=== PATIENT | female | born 1980 | race Caucasian/White ===

== ENCOUNTER 2017-06-14 20:56 | Inpatient (IN) | payer OTHER ==
[2017-06-14 21:47] VITALS: BMI 33.3
[2017-06-14] MEDS ORDERED: Metoclopramide HCl 10 MG/2 ML VIAL IVP PRN (22:06)
[2017-06-14] MEDS ORDERED: diphenhydrAMINE 50 MG/ML VIAL IVP PRN (22:07)
[2017-06-14] MEDS ORDERED: Sodium Chloride 0.9% 10 ML ONE (22:07)
--- NOTE | 2017-06-14 22:12 | PDOC.LDHP ---
Labor and Delivery H&P Chief complaint: other (elevated BP, headache, epigastric pain) HPI: 37 y/o at 36w1d, patient of Dr. Mehta, presents with BURDICK, epigastric pain tonight with BP in 160s/90s at home. Has taken Tylenol with no improvement in BURDICK. Has induction scheduled for Tuesday. OB History Details: History of preeclampsia with 2nd 4 vaginal deliveries Current complications: gestational hypertension Past Medical History: Hx HTN, migraines, obesity, PCOS Current medications: pre- vitamins Previous surgical history: cholecystectomy, other (gastric sleeve ovarian cystectomy) Allergies/Adverse Reactions: Allergies Allergy/AdvReac Type Severity Reaction Status Date / Time meperidine Allergy Mild Verified 06/14/17 21:28 Social history: drug use (none current, recovering addict) - Physical Exam Abnormal vital signs: Elevated BPs General: NAD, resting Lungs: nonlabored breathing Abdomen: gravid Extremeties: no edema FHT: category 1 (130s, mod variability, + accels, no decels) [place] contractions every: occasional - OB Labs Additional Labs: Laboratory Results - last 24 hr 06/14/17 06/14/17 06/14/17 22:47 22:47 22:47 WBC RBC Hgb Hct MCV MCH MCHC RDW Plt Count MPV Neutrophils % Lymphocytes % Monocytes % Eosinophils % Basophils % Neutrophils # Lymphocytes # Monocytes # Eosinophils # Basophils # Sodium 138 Potassium 3.8 Chloride 105 Carbon Dioxide 24 Anion Gap 13 BUN 11 Creatinine 0.54 L Estimated GFR (MDRD) Greater than 90 Glucose 84 Calcium 8.7 Total Bilirubin 0.5 AST 11 ALT 9 Alkaline Phosphatase 123 Serum Total Protein 5.6 L Albumin 3.3 L Globulin 2.3 L Albumin/Globulin Ratio 1.4 U Random Total Protein 24 Urine Creatinine 220.20 H Urine Opiates Screen Ur Oxycodone Screen Urine Methadone Screen Ur Propoxyphene Screen Ur Barbiturates Screen Ur Tricyclics Screen Ur Phencyclidine Scrn Ur Amphetamines Screen U Methamphetamines Scrn U Benzodiazepines Scrn U Cocaine Metab Screen U Cannabinoids Screen Drug Screen Comment 06/14/17 06/14/17 22:47 22:47 WBC 7.4 RBC 3.04 L Hgb 9.0 L Hct 26.2 L MCV 86.2 MCH 29.7 MCHC 34.5 RDW 12.7 Plt Count 201 MPV 7.6 Neutrophils % 59.3 Lymphocytes % 32.6 Monocytes % 7.5 Eosinophils % 0.5 Basophils % 0.1 Neutrophils # 4.4 Lymphocytes # 2.4 Monocytes # 0.6 H Eosinophils # 0.0 Basophils # 0.0 Sodium Potassium Chloride Carbon Dioxide Anion Gap BUN Creatinine Estimated GFR (MDRD) Glucose Calcium Total Bilirubin AST ALT Alkaline Phosphatase Serum Total Protein Albumin Globulin Albumin/Globulin Ratio U Random Total Protein Urine Creatinine Urine Opiates Screen Not Detected Ur Oxycodone Screen Not Detected Urine Methadone Screen Not Detected Ur Propoxyphene Screen Not Detected Ur Barbiturates Screen Not Detected Ur Tricyclics Screen Not Detected Ur Phencyclidine Scrn Not Detected Ur Amphetamines Screen Not Detected U Methamphetamines Scrn Not Detected U Benzodiazepines Scrn Detected H U Cocaine Metab Screen Not Detected U Cannabinoids Screen Not Detected Drug Screen Comment - Assessment 37 y/o at 36w1d with elevated BPs at home, BURDICK and epigastric pain. status reassuring with reactive NST. - Plan -: Will observe overnight and treat BURDICK, epigastric pain with continued monitoring of BPs. If BPs are persistently elevated or symptoms persist, will likely proceed with IOL and Magnesium. Given Celestone x 1.
[2017-06-14] MEDS ORDERED: Betamet Acet/Betamet Na Ph 30 MG/5 ML VIAL IM SCH (22:15)
[2017-06-14] MEDS ORDERED: Lidocaine 2% Viscous Solution 10 ML, Aluminum & Magnesium Hydroxide 30 ML SSW SCH ×2 (22:15)
[2017-06-14] MEDS ORDERED: Ondansetron HCl/PF 4 MG/2 ML Vial IVP PRN (22:22)
[2017-06-14] MEDS ORDERED: Metoclopramide HCl 10 MG/2 ML VIAL ONE (22:44)
[2017-06-14 23:04] LABS: Amphetamine Not Detected (NotDetected); Barbiturates Screen Not Detected (NotDetected); Benzodiazepine Screen Detected (NotDetected); Cocaine Metabolite Screen Not Detected (NotDetected); Medtox Control Line Valid? VALID (VALID); Medtox Reader # READER 4; Methadone Not Detected (NotDetected); Methamphetamine Not Detected (NotDetected); Opiate Screen Not Detected (NotDetected); Oxycodone Screen Not Detected (NotDetected); Phencyclidine (PCP) Not Detected (NotDetected); THC/Cannabinoid Screen Not Detected (NotDetected); Tricyclic Screen Not Detected (NotDetected)
[2017-06-14 23:06] LABS: #Lymphocytes 2.4 thou/uL (1.20-3.40); #Monocytes 0.6 thou/uL (0.11-0.59); #Neutrophils 4.4 thou/uL (1.40-6.50); %Basophils 0.1 % (0.0-1.0); %Eosinophils 0.5 % (0.0-10.0); %Lymphocytes 32.6 % (21.0-51.0); %Monocytes 7.5 % (0.0-10.0); %Neutrophils 59.3 % (42.0-75.0); Mean Corpuscular HGB CONC 34.5 g/dL (32.0-36.0); Mean Corpuscular Hemoglobin 29.7 pg (27.0-31.0); Mean Corpuscular Volume 86.2 fl (81.0-99.0); Mean Platelet Volume 7.6 fL (7.4-10.4); Platelet Count 201 thou/uL (130-400); RBC Distribution Width 12.7 % (11.5-14.5); Red Blood Cell (RBC) Count 3.04 mill/uL (4.20-5.40); White Blood Cell (WBC) Count 7.4 thou/uL (4.8-10.8)
[2017-06-14 23:18] LABS: ALT (SGPT) 9 U/L (8-55); AST (SGOT) 11 U/L (5-34); Albumin 3.3 g/dL (3.5-5.0); Alkaline Phosphatase 123 U/L (40-150); Anion Gap 13 mmol/L (10-20); BUN (Urea Nitrogen) 11 mg/dL (7.0-18.7); Bilirubin, Total 0.5 mg/dL (0.2-1.2); Calc. Creatinine Clearance 206 mL/min (70-130); Calcium 8.7 mg/dL (7.8-10.44); Carbon Dioxide 24 mmol/L (22-29); Chloride 105 mmol/L (98-107); Estimated GFR-MDRD Greater than 90; Globulin 2.3 g/dL (2.4-3.5); Glucose 84 mg/dL (70-105); Potassium 3.8 mmol/L (3.5-5.1); Protein, Total 5.6 g/dL (6.0-8.3); Sodium 138 mmol/L (136-145)
[2017-06-15] MEDS ORDERED: Calcium Gluc 4.6 MEQ/10 ML (100 MG/ML) SLOW IVP PRN (07:19)
[2017-06-15] MEDS ORDERED: Ibuprofen 800 MG TAB PO PRN (07:19)
[2017-06-15] MEDS ORDERED: LR / Pitocin 40 units/1000 ml 1,000 ML IV PRN (07:19)
[2017-06-15] MEDS ORDERED: Lidocaine 1% (PF) 30 ML VIAL SC PRN (07:19)
[2017-06-15] MEDS ORDERED: Misoprostol 100 MCG TAB VAG SCH (07:30)
[2017-06-15] MEDS ORDERED: Magnesium Sulfate 20 GM/WATER 500 ML BAG IVPB SCH (07:30)
[2017-06-15] MEDS ORDERED: Penicillin G Potassium 5 MILL.UNITS in Sodium Chloride 0.9% 100 ML IVPB SCH (07:30)
[2017-06-15] MEDS ORDERED: LR 500 ML/Oxytocin 10 units 500 ML IV SCH (07:30)
[2017-06-15] MEDS: Magnesium Sulfate 20 gm/500 ml 20 GM/500 ML BAG IVPB SCH ×2 (08:05→16:18)
[2017-06-15] MEDS ORDERED: Penicillin G Potassium 5 MILL.UNITS VIAL ONE (08:24)
[2017-06-15] MEDS: Misoprostol 100 MCG TAB PO SCH (09:10)
[2017-06-15] MEDS ORDERED: Bupivacaine 10 ML in Sodium Chloride 0.9% 90 ML EPIDURAL SCH (10:00)
--- NOTE | 2017-06-15 10:29 | PDOC.LDPN ---
Labor & Delivery Progress Note - Subjective Subjective: other (Headache) - Objective Abnormal vital signs: severe range BP noted, even while asleep General: NAD, resting Dilation: 3 Effacement: 50% Station: -2 FHT: category 1 - Assessment (1) 36 weeks gestation of Code(s): Z3A.36 - 36 WEEKS GESTATION OF Current Visit: Yes Status : Acute (2) Pre-eclampsia, severe Code(s): O14.10 - SEVERE PRE-ECLAMPSIA, UNSPECIFIED TRIMESTER Current Visit: Yes Status: Acute Plan: other -: A/P: PIH with severe features, BURDICK and severe range BP at home and on L and D -Magnesium for seizure prophylaxis -PCN for GBS+ -Cytotec for IOL UDS neg this week in clinic.
[2017-06-15] MEDS ORDERED: Penicillin G 2.5 MILL.units 2.5 MILL.UNITS in Premix Bag 1 BAG IVPB SCH (13:00)
--- NOTE | 2017-06-15 13:01 | PDOC.LDPN ---
Labor & Delivery Progress Note - Subjective Subjective: comfortable - Objective General: resting Dilation: 4 Effacement: 50% Station: -1 FHT: category 1 AROM: clear fluid - Assessment (1) 36 weeks gestation of Code(s): Z3A.36 - 36 WEEKS GESTATION OF Current Visit: Yes Status : Acute (2) Pre-eclampsia, severe Code(s): O14.10 - SEVERE PRE-ECLAMPSIA, UNSPECIFIED TRIMESTER Current Visit: Yes Status: Acute Plan: continue plan of care
[2017-06-15] MEDS ORDERED: Misoprostol 200 MCG TAB ONE (14:11)
[2017-06-15] MEDS ORDERED: LR / Pitocin 40 units/1000 ml 1,000 ML ONE (14:11)
[2017-06-15] MEDS ORDERED: Carboprost 250 MCG/ML AMP ONE (14:47)
--- NOTE | 2017-06-15 15:22 | PDOC.OPDEL ---
OB Operative/Delivery Note Delivery Dr/Surgeon: Tyson Pre-Delivery Diagnosis: medically indicated induction (36 weeks severe PIH) Weeks gestation: 36 - Findings A Sex: male - 1 min: 8 - 5 min: 9 - Additional Findings/Plan Placenta delivered: spontaneous Repaired Obstetrical Laceration: none Estimated blood loss: 400ml Post delivery plan: recovery in LICU (Magnesium recovery until approx 24hrs PP, repeat labs in AM, iron for anemia and LC at bedside assiting w breast feeding.)
[2017-06-15] MEDS: Lactated Ringer's 1,000 ML IV SCH ×2 (21:09→21:11)
[2017-06-15] MEDS ORDERED: Milk Of Magnesia 30 ML UDCUP PO PRN (21:28)
[2017-06-15] MEDS ORDERED: Preparation H Ointment 28 GM TUBE PR PRN (21:28)
[2017-06-15] MEDS ORDERED: Lanolin Ointment 7 GM TUBE TOP PRN (21:28)
[2017-06-15] MEDS ORDERED: LR / Pitocin 40 units/1000 ml 1,000 ML IV SCH (21:28)
[2017-06-15] MEDS ORDERED: Ondansetron HCl/PF 4 MG/2 ML Vial IVP PRN (21:28)
[2017-06-15] MEDS ORDERED: Bisacodyl 10 MG SUPP PR PRN (21:28)
[2017-06-15] MEDS ORDERED: Calcium Gluconate 4.6 MEQ in Sodium Chloride 0.9% 100 ML IVPB PRN (21:28)
[2017-06-15] MEDS ORDERED: diphenhydrAMINE 25 MG CAP PO PRN (21:28)
[2017-06-15] MEDS ORDERED: Benzocaine/Menthol 20-0.5% 60 ML CAN TOP PRN (21:28)
[2017-06-15] MEDS ORDERED: Magnesium Sulfate 20 gm/500 ml 20 GM/500 ML BAG IVPB SCH (21:45)
[2017-06-15] MEDS ORDERED: Docusate Calcium (SURFAK) 240 MG CAP PO SCH (22:00)
[2017-06-15] MEDS ORDERED: Ferrous Sulfate 325 MG TAB PO SCH (22:00)
[2017-06-15] MEDS ORDERED: Adacel (T-DAP) 0.5 ML VIAL IM ONE (22:30)
[2017-06-16] MEDS: Ibuprofen 800 MG TAB PO SCH ×4 (05:05→21:53)
[2017-06-16 07:34] LABS: Hemoglobin 7.8 g/dL (12.0-16.0); Mean Corpuscular HGB CONC 33.6 g/dL (32.0-36.0); Mean Corpuscular Hemoglobin 29.6 pg (27.0-31.0); Mean Platelet Volume 7.1 fL (7.4-10.4); Platelet Count 201 thou/uL (130-400); RBC Distribution Width 12.7 % (11.5-14.5); Red Blood Cell (RBC) Count 2.63 mill/uL (4.20-5.40); White Blood Cell (WBC) Count 7.8 thou/uL (4.8-10.8)
[2017-06-16 08:05] LABS: ALT (SGPT) 8 U/L (8-55); AST (SGOT) 8 U/L (5-34); Albumin 2.7 g/dL (3.5-5.0); Alkaline Phosphatase 96 U/L (40-150); Anion Gap 9 mmol/L (10-20); BUN (Urea Nitrogen) 7 mg/dL (7.0-18.7); Bilirubin, Total 0.2 mg/dL (0.2-1.2); Calc. Creatinine Clearance 199 mL/min (70-130); Calcium 7.1 mg/dL (7.8-10.44); Carbon Dioxide 27 mmol/L (22-29); Chloride 108 mmol/L (98-107); Estimated GFR-MDRD Greater than 90; Globulin 2.3 g/dL (2.4-3.5); Glucose 123 mg/dL (70-105); Magnesium 4.2 mg/dL (1.6-2.6); Potassium 3.6 mmol/L (3.5-5.1); Sodium 140 mmol/L (136-145)
--- NOTE | 2017-06-16 08:53 | PDOC.PP ---
Post Progress Note Post Day #: 1 Subjective: NO PIH sx, olga reg diet, voiding on bedpan, nursing well, min lochia PO intake tolerated: yes Flatus: yes Ambulation: yes Vital Signs (12 hours) Temp Pulse Resp 06/16/17 05:15 98.2 F 97 18 06/16/17 02:47 98.2 F 91 18 06/15/17 22:10 98.8 F 115 H 18 Weight Weight 200 lb - Physical Examination General: NAD (BP NORMAL) Respiratory: non-labored breathing Abdominal: lochia (min) Fundus firm & at: below umb Extremities: negative homans (B) Skin: no rash Neurological: no gross focal deficits Psychiatric: A&Ox3, normal affect Result Diagrams: 06/16/17 07:18 06/16/17 07:18 (1) 36 weeks gestation of Code(s): Z3A.36 - 36 WEEKS GESTATION OF Status: Acute (2) Pre-eclampsia, severe Code(s): O14.10 - SEVERE PRE-ECLAMPSIA, UNSPECIFIED TRIMESTER Status: Acute - Assessment/Plan PPD 1 doing well, approx 20hrs magnesium recovery PP, BP all normal and labs WNL w exception of anemia. Plan to DC mag sulfate and transfer to PP.
[2017-06-16] MEDS: Prenatal Vitamin 1 TAB PO SCH (10:01)
[2017-06-16] MEDS: Ferrous Sulfate 325 MG TAB PO SCH ×2 (10:02→17:47)
[2017-06-16] MEDS: Docusate Calcium (SURFAK) 240 MG CAP PO SCH ×2 (10:02→21:53)
[2017-06-16] MEDS ORDERED: Venlafaxine XR 37.5 MG CAP PO SCH (17:00)
[2017-06-16] MEDS ORDERED: FLUoxetine HCl 20 MG CAP PO SCH (17:00)
[2017-06-16] MEDS: Misoprostol 100 MCG TAB PO SCH (17:53)
[2017-06-16 18:53] LABS: HBSAg Index 0.18 S/CO (0-0.99); Hep B Surf Ag Non-Reactive S/CO (NonReactive)
[2017-06-17] MEDS: Ibuprofen 800 MG TAB PO SCH (06:09)
[2017-06-17 07:51] VITALS: BP 131/82; TEMP 98
[2017-06-17] MEDS: Prenatal Vitamin 1 TAB PO SCH (08:41)
[2017-06-17] MEDS: Docusate Calcium (SURFAK) 240 MG CAP PO SCH (08:41)
[2017-06-17] MEDS: Ferrous Sulfate 325 MG TAB PO SCH (08:41)
[2017-06-17] MEDS ORDERED: Venlafaxine XR 37.5 MG CAP PO SCH (09:00)
[2017-06-17] MEDS ORDERED: FLUoxetine HCl 20 MG CAP PO SCH (09:00)
--- NOTE | 2017-06-17 09:22 | PDOC.PP ---
Post Progress Note Post Day #: 2 Subjective: Doing well, no symptoms of anemia, min lochia, breast feeding well. +benzo on UDS reviewed and poss reaction from SSRI/SNRI? reviewed w case management. Had neg UDS same day and day before in office. PO intake tolerated: yes Flatus: yes Ambulation: yes Vital Signs (12 hours) Temp Pulse Resp BP 06/17/17 07:35 98.0 F 79 18 131/82 06/17/17 04:15 98.5 F 86 18 122/70 06/17/17 00:17 97.9 F 75 18 127/60 Weight Weight 200 lb - Physical Examination General: NAD Respiratory: non-labored breathing Abdominal: no distention Fundus firm & at: below umb Extremities: negative homans (B) Skin: CS incision dry & intact, no rash Neurological: no gross focal deficits Psychiatric: A&Ox3, normal affect Result Diagrams: 06/16/17 07:18 06/16/17 07:18 Additional Labs: Post Labs Hep Bs Antigen Non-Reactive S/CO (NonReactive) 06/14/17 22:48 (1) 36 weeks gestation of Code(s): Z3A.36 - 36 WEEKS GESTATION OF Status: Acute (2) Pre-eclampsia, severe Code(s): O14.10 - SEVERE PRE-ECLAMPSIA, UNSPECIFIED TRIMESTER Status: Acute - Assessment/Plan PPD2, asx anemia, BP WNL. Plan for DC home today after case management consult. Mike Anguiano PP.
== END 2017-06-17 12:50 | disposition home or self-care (01) | DRG 775 ==
LOC: L&D/OP 20:56 → L&D 23:00 → OBSVTOIN 23:00 → EEVIPCON 23:00 → L&D 06-15 21:34 → 3SW 06-16 16:59
PROVIDERS: ADMIT Obstetrics & Gynecology; ATTEND Obstetrics & Gynecology
PROC: 10E0XZZ Delivery of Products of Conception, External Approach (ICD-10-PCS; principal; 2017-06-15)
PROC: 10907ZC Drainage of Amniotic Fluid, Therapeutic from Products of Conception, Via Natural or Artificial Opening (ICD-10-PCS; 2017-06-15)
PROC: 3E0P7VZ Introduction of Hormone into Female Reproductive, Via Natural or Artificial Opening (ICD-10-PCS; 2017-06-15)
DX: O14.14 Severe pre-eclampsia complicating childbirth (principal); O99.824 Streptococcus B carrier state complicating childbirth; Z88.8 Allergy status to other drugs, medicaments and biological substances; Z98.84 Bariatric surgery status; Z3A.36 36 weeks gestation of pregnancy; Z37.0 Single live birth
CPT/HCPCS: 36415; 51702; 80053; 80306; 80307; 82570; 83735; 84156; 85025; 85027; 87340; 99285; A4216; J0702; J1200; J2405; J2540; J2765; J3475; J3490; J7050

== ENCOUNTER 2018-06-26 19:48 | Inpatient (IN) | payer OTHER ==
[~2018-06-26 19:48] MED LIST: ISOVUE-370 76%-LOCM 1 ML ONE
[2018-06-26] MEDS ORDERED: Ondansetron PF 4 MG/2 ML Vial ONE (19:53)
[2018-06-26 20:24] LABS: #Basophils 0.1 thou/uL (0.0-0.2); #Eosinphils 0.2 thou/uL (0.0-0.7); #Lymphocytes 2.9 thou/uL (1.20-3.40); #Monocytes 0.9 thou/uL (0.11-0.59); #Neutrophils 10.5 thou/uL (1.40-6.50); %Basophils 0.4 % (0.0-1.0); %Eosinophils 1.3 % (0.0-10.0); %Lymphocytes 20.1 % (21.0-51.0); %Neutrophils 72.3 % (42.0-75.0); Hemoglobin 11.6 g/dL (12.0-16.0); Mean Corpuscular HGB CONC 33.1 g/dL (32.0-36.0); Mean Corpuscular Hemoglobin 29.1 pg (27.0-31.0); Mean Corpuscular Volume 88.1 fL (78.0-98.0); Mean Platelet Volume 6.7 fL (7.4-10.4); Platelet Count 313 thou/uL (130-400); RBC Distribution Width 11.9 % (11.5-14.5); Red Blood Cell (RBC) Count 3.99 mill/uL (4.20-5.40); White Blood Cell (WBC) Count 14.5 thou/uL (4.8-10.8)
[2018-06-26 20:29] LABS: INR-International Normal Ratio 0.9; PTT 27.4 SEC (22.9-36.1); Prothrombin Time 12.5 SEC (12.0-14.7)
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
[2018-06-26 20:48] LABS: ALT (SGPT) 35 U/L (8-55); AST (SGOT) 41 U/L (5-34); Albumin 4.5 g/dL (3.5-5.0); Alkaline Phosphatase 71 U/L (40-150); Anion Gap 12 mmol/L (10-20); BUN (Urea Nitrogen) 14 mg/dL (7.0-18.7); Bilirubin, Total 0.3 mg/dL (0.2-1.2); Calc. Creatinine Clearance 0 mL/min (70-130); Calcium 9.8 mg/dL (7.8-10.44); Carbon Dioxide 24 mmol/L (22-29); Chloride 103 mmol/L (98-107); Estimated GFR-MDRD 82; Globulin 2.5 g/dL (2.4-3.5); Glucose 111 mg/dL (70-105); Lipase 47 U/L (8-78); Potassium 3.4 mmol/L (3.5-5.1); Sodium 136 mmol/L (136-145)
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
[2018-06-26 20:57] LABS: BHCG - Serum Negative (NEGATIVE); Pregs Control Background? CLEAR/WHITE (CLR/WHITE); Pregs Control Bar Appear? YES (CONTROL BAR)
[2018-06-26 21:22] LABS: Bilirubin Negative (Negative); Blood, Urine Negative (Negative); Clarity CLEAR (Clear); Glucose, Urine (Dipstick) Negative (Negative); Leukocyte Negative (Negative); Nitrite Negative (Negative); Protein, Urine (Dipstick) Trace mg/dL (Neg-Trace); Specific Gravity, Urine 1.031 (1.002-1.036); Urobilinogen 0.2 mg/dL (0.2-1.0)
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
[2018-06-26] MEDS ORDERED: Dextrose 50% Abboject 50 ML SYRINGE SLOW IVP PRN (22:53)
[2018-06-26] MEDS ORDERED: Ondansetron ODT 4 MG TAB SL PRN (22:53)
[2018-06-26] MEDS ORDERED: Promethazine HCl 25 MG/ML VIAL IM PRN (22:53)
[2018-06-26] MEDS ORDERED: traMADol HCl 50 MG TAB PO PRN ×2 (22:53)
[2018-06-26] MEDS ORDERED: Dextrose 5% in Water 1,000 ML IV PRN (22:53)
[2018-06-26] MEDS ORDERED: Ondansetron PF 4 MG/2 ML Vial IVP PRN ×2 (22:53)
[2018-06-26] MEDS ORDERED: hydrALAZINE 20 MG/ML VIAL SLOW IVP PRN (22:53)
[2018-06-26] MEDS ORDERED: Cyclobenzaprine 10 MG TAB PO PRN (22:53)
[2018-06-26] MEDS ORDERED: D5 1/2 NS w/20 mEq KCL 1,000 ML IV SCH (23:00)
[2018-06-26] MEDS: Sodium Chloride 0.9% 1,000 ML IV SCH (23:20)
[2018-06-26] MEDS: Acetaminophen 1,000 MG in Premix Bag 1 BAG IVPB SCH (23:22)
[2018-06-26] MEDS: Ketorolac Tromethamine 30 MG/ML VIAL IVP SCH (23:23)
[2018-06-26] MEDS: Morphine 4 MG/ML VIAL SLOW IVP PRN (23:45)
[2018-06-27 01:14] VITALS: BMI 32.4
[2018-06-27] MEDS: Morphine 4 MG/ML VIAL SLOW IVP PRN ×4 (01:54→11:20)
[2018-06-27] MEDS: Ketorolac Tromethamine 30 MG/ML VIAL IVP SCH ×4 (05:05→23:41)
[2018-06-27] MEDS: Acetaminophen 1,000 MG in Premix Bag 1 BAG IVPB SCH ×4 (05:07→23:40)
[2018-06-27] MEDS: Sodium Chloride 0.9% 1,000 ML IV SCH ×2 (05:47→20:45)
[2018-06-27 06:50] LABS: #Eosinphils 0.1 thou/uL (0.0-0.7); #Monocytes 0.5 thou/uL (0.11-0.59); %Basophils 0.4 % (0.0-1.0); %Eosinophils 1.9 % (0.0-10.0); %Lymphocytes 35.5 % (21.0-51.0); %Monocytes 8.6 % (0.0-10.0); %Neutrophils 53.6 % (42.0-75.0); Mean Corpuscular HGB CONC 33.1 g/dL (32.0-36.0); Mean Corpuscular Hemoglobin 29.4 pg (27.0-31.0); Mean Corpuscular Volume 88.8 fL (78.0-98.0); Mean Platelet Volume 6.5 fL (7.4-10.4); Platelet Count 237 thou/uL (130-400); RBC Distribution Width 11.9 % (11.5-14.5); Red Blood Cell (RBC) Count 3.41 mill/uL (4.20-5.40); White Blood Cell (WBC) Count 5.6 thou/uL (4.8-10.8)
[2018-06-27 07:12] LABS: Anion Gap 7 mmol/L (10-20); BUN (Urea Nitrogen) 11 mg/dL (7.0-18.7); Calc. Creatinine Clearance 156 mL/min (70-130); Calcium 8.6 mg/dL (7.8-10.44); Carbon Dioxide 30 mmol/L (22-29); Chloride 105 mmol/L (98-107); Estimated GFR-MDRD Greater than 90; Glucose 92 mg/dL (70-105); Magnesium 2.2 mg/dL (1.6-2.6); Phosphorus 3.9 mg/dL (2.3-4.7); Potassium 3.7 mmol/L (3.5-5.1); Sodium 138 mmol/L (136-145)
[2018-06-27] MEDS: Famotidine/PF 20 mg/2ml Vial SLOW IVP SCH ×2 (08:21→20:52)
[2018-06-27] MEDS: Senokot S 8.6-50 MG TAB PO SCH ×2 (08:21→20:49)
[2018-06-27] MEDS: Polyethylene Glycol 3350 17 GM Packet PO SCH (08:21)
[2018-06-27] MEDS ORDERED: Ropivacaine 0.5% HCl/PF (150 MG/30 ML VIAL) ONE (10:15)
[2018-06-27] MEDS ORDERED: Ropivacaine 0.2% HCl/PF (40 MG/20 ML VIAL) ONE (10:15)
[2018-06-27] MEDS ORDERED: PROPOFOL 200 MG/20 ML VIAL ONE (10:37)
[2018-06-27] MEDS ORDERED: Ketorolac Tromethamine 30 MG/ML VIAL ONE ×2 (10:37→12:36)
[2018-06-27] MEDS ORDERED: Glycopyrrolate 0.2 MG/ML 5 ML SYRINGE ONE (10:37)
[2018-06-27] MEDS ORDERED: Rocuronium Bromide 10 MG/ML (10ML VIAL) ONE (10:37)
[2018-06-27] MEDS ORDERED: PHENYLEPHRINE-NS 100 MCG/ML 10 ML SYRINGE ONE (10:37)
[2018-06-27] MEDS ORDERED: Dexamethasone 20 MG/5 ML VIAL ONE (10:37)
[2018-06-27] MEDS ORDERED: Lidocaine 1% PF 5 ML VIAL ONE (10:37)
[2018-06-27] MEDS ORDERED: Ondansetron PF 4 MG/2 ML Vial ONE (10:37)
[2018-06-27] MEDS ORDERED: Lorazepam 1 MG TAB PO PRN (10:52)
[2018-06-27] MEDS ORDERED: busPIRone HCl 5 MG TAB PO SCH (11:00)
[2018-06-27] MEDS ORDERED: DULoxetine 60 MG CAP PO SCH (11:00)
[2018-06-27] MEDS ORDERED: buPROPion HCl 100 MG TAB PO SCH (11:00)
[2018-06-27] MEDS ORDERED: Midazolam HCl 2 mg/2 ml Vial ONE ×2 (12:36→13:44)
[2018-06-27] MEDS ORDERED: Fentanyl 100 MCG/2 ML VIAL ONE ×2 (12:52→13:44)
[2018-06-27] MEDS ORDERED: Ondansetron PF 4 MG/2 ML Vial IVP PRN ×3 (13:08→16:57)
[2018-06-27] MEDS ORDERED: Zolpidem Tartrate 5 MG TAB PO PRN ×3 (13:08→16:57)
[2018-06-27] MEDS ORDERED: Ropivacaine HCl/PF 250 ML in Premix Bag 1 BAG NERVE BLCK SCH (13:08)
[2018-06-27] MEDS ORDERED: Promethazine HCl 25 MG/ML VIAL IM PRN ×4 (13:08→16:57)
[2018-06-27] MEDS ORDERED: diphenhydrAMINE 50 MG/ML VIAL IM/IV PRN (13:09)
[2018-06-27] MEDS ORDERED: diphenhydrAMINE 25 MG CAP PO PRN (13:09)
[2018-06-27] MEDS ORDERED: Naloxone HCl 0.4 mg/ml Vial IV PRN (13:09)
[2018-06-27] MEDS ORDERED: Fentanyl 250 MCG/5 ML VIAL ONE (13:38)
[2018-06-27] MEDS: cloNIDine 0.1 MG TAB PO SCH ×3 (14:09→23:40)
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
[2018-06-27] MEDS ORDERED: Ketorolac Tromethamine 30 MG/ML VIAL IVP PRN (16:42)
[2018-06-27] MEDS ORDERED: Promethazine HCl 25 MG/ML VIAL SLOW IVP PRN (16:42)
[2018-06-27] MEDS ORDERED: Ondansetron HCl/PF 4 MG/2 ML Vial IVP PRN (16:42)
[2018-06-27] MEDS ORDERED: CEFAZOLIN/Water 2 GM/20 ML SYRINGE SLOW IVP SCH (16:45)
--- NOTE | 2018-06-27 19:00 | RAD ---
RIGHT KNEE TWO VIEWS: 06/27/18 HISTORY: Postop. This shows open reduction and internal fixation of medial and lateral tibial plateau fractures with p late and screws. IMPRESSION: Open reduction and internal fixation of tibial plateau fractures. POS: [facility]
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
[2018-06-27] MEDS: CEFAZOLIN 2 GM in Premix Bag 1 BAG IVPB SCH (20:46)
[2018-06-27] MEDS: buPROPion HCl 100 MG TAB PO SCH (20:50)
[2018-06-27] MEDS: busPIRone HCl 5 MG TAB PO SCH (20:50)
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
[2018-06-28] MEDS: Sodium Chloride 0.9% 1,000 ML IV SCH ×3 (03:50→19:27)
[2018-06-28] MEDS: CEFAZOLIN 2 GM in Premix Bag 1 BAG IVPB SCH (04:09)
[2018-06-28] MEDS: Ketorolac Tromethamine 30 MG/ML VIAL IVP SCH ×4 (05:13→23:38)
[2018-06-28] MEDS: cloNIDine 0.1 MG TAB PO SCH (07:37)
[2018-06-28] MEDS ORDERED: Enoxaparin Sodium 40 MG/0.4 ML SYRINGE SC SCH (09:00)
[2018-06-28] MEDS: Famotidine/PF 20 mg/2ml Vial SLOW IVP SCH ×2 (09:30→20:35)
[2018-06-28] MEDS: buPROPion HCl 100 MG TAB PO SCH ×2 (09:31→20:35)
[2018-06-28] MEDS: Polyethylene Glycol 3350 17 GM Packet PO SCH (09:31)
[2018-06-28] MEDS: busPIRone HCl 5 MG TAB PO SCH ×2 (09:31→20:35)
[2018-06-28] MEDS: DULoxetine 60 MG CAP PO SCH (09:31)
[2018-06-28] MEDS: Senokot S 8.6-50 MG TAB PO SCH ×2 (09:31→20:35)
[2018-06-28] MEDS: Enoxaparin Sodium 30 MG/0.3 ML SYRINGE SC SCH ×2 (11:15→20:35)
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
[2018-06-28] MEDS: Ropivacaine HCl/PF 250 ML in Premix Bag 1 BAG NERVE BLCK SCH (18:43)
[2018-06-28] MEDS: fentaNYL Citrate/PF 2,000 MCG in Sodium Chloride 0.9% 60 ML IV PRN (21:20)
[2018-06-29] MEDS: Ketorolac Tromethamine 30 MG/ML VIAL IVP SCH ×2 (05:06→12:19)
[2018-06-29] MEDS: Sodium Chloride 0.9% 1,000 ML IV SCH (05:08)
[2018-06-29] MEDS: DULoxetine 60 MG CAP PO SCH (08:30)
[2018-06-29] MEDS: buPROPion HCl 100 MG TAB PO SCH ×2 (08:30→20:15)
[2018-06-29] MEDS: busPIRone HCl 5 MG TAB PO SCH ×2 (08:30→20:15)
[2018-06-29] MEDS: Enoxaparin Sodium 30 MG/0.3 ML SYRINGE SC SCH ×2 (08:30→20:14)
[2018-06-29] MEDS: Famotidine 20 MG TAB PO SCH ×2 (08:30→20:15)
[2018-06-29] MEDS: Senokot S 8.6-50 MG TAB PO SCH ×2 (08:30→20:31)
[2018-06-29] MEDS: Polyethylene Glycol 3350 17 GM Packet PO SCH (08:30)
[2018-06-29] MEDS ORDERED: Milk Of Magnesia 30 ML UDCUP PO SCH (09:15)
[2018-06-29] MEDS: Ropivacaine HCl/PF 250 ML in Premix Bag 1 BAG NERVE BLCK SCH (20:27)
[2018-06-30] MEDS: fentaNYL Citrate/PF 2,000 MCG in Sodium Chloride 0.9% 60 ML IV PRN (00:43)
[2018-06-30] MEDS: buPROPion HCl 100 MG TAB PO SCH (08:40)
[2018-06-30] MEDS: DULoxetine 60 MG CAP PO SCH (08:40)
[2018-06-30] MEDS: Polyethylene Glycol 3350 17 GM Packet PO SCH (08:40)
[2018-06-30] MEDS: busPIRone HCl 5 MG TAB PO SCH (08:41)
[2018-06-30] MEDS: Enoxaparin Sodium 30 MG/0.3 ML SYRINGE SC SCH (08:41)
[2018-06-30] MEDS: Senokot S 8.6-50 MG TAB PO SCH (08:41)
[2018-06-30] MEDS: Famotidine 20 MG TAB PO SCH (08:41)
[2018-06-30] MEDS ORDERED: Dexamethasone 4 mg/ml Vial ONE (11:50)
[2018-06-30 12:04] VITALS: BP 145/94; TEMP 98.7
[2018-06-30] MEDS ORDERED: Non-Formulary Item 1 EACH (Acetaminophen [Tylenol] 650 MG) PO PRN (12:12)
[2018-06-30] MEDS ORDERED: IBUPROFEN 400 MG PO PRN (12:12)
[2018-06-30] MEDS ORDERED: HYDROcodone/Acetaminophen 5/325 mg Tablet PO PRN ×3 (12:12→12:22)
[2018-06-30] MEDS ORDERED: Acetaminophen 325 MG TAB PO PRN (12:22)
[2018-06-30] MEDS ORDERED: Ibuprofen 200 MG TAB PO PRN (12:23)
[2018-06-30] MEDS ORDERED: Bupivacaine HCl 0.5%/Epinephrine 1:200,000/PF 30 ml Vial ONE (15:02)
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
== END 2018-06-30 13:00 | DRG 494 ==
LOC: EEVIPCON 19:48 → ERS 19:48 → SURG A 22:48
PROVIDERS: ADMIT Specialist; ATTEND Specialist
PROC: 0QSG04Z Reposition Right Tibia with Internal Fixation Device, Open Approach (ICD-10-PCS; principal; 2018-06-27)
PROC: 3E0T3BZ Introduction of Anesthetic Agent into Peripheral Nerves and Plexi, Percutaneous Approach (ICD-10-PCS; 2018-06-27)
DX: S82.251A Displaced comminuted fracture of shaft of right tibia, initial encounter for closed fracture (principal); S82.491A Other fracture of shaft of right fibula, initial encounter for closed fracture; V43.53XA Car driver injured in collision with pick-up truck in traffic accident, initial encounter; Y92.410 Unspecified street and highway as the place of occurrence of the external cause; F41.9 Anxiety disorder, unspecified; F32.9 Major depressive disorder, single episode, unspecified; F15.11 Other stimulant abuse, in remission; Z98.84 Bariatric surgery status; S61.411A Laceration without foreign body of right hand, initial encounter; S70.02XA Contusion of left hip, initial encounter; S92.334A Nondisplaced fracture of third metatarsal bone, right foot, initial encounter for closed fracture; S92.324A Nondisplaced fracture of second metatarsal bone, right foot, initial encounter for closed fracture; E28.2 Polycystic ovarian syndrome; I10 Essential (primary) hypertension; G43.909 Migraine, unspecified, not intractable, without status migrainosus; S83.004A Unspecified dislocation of right patella, initial encounter; S92.344A Nondisplaced fracture of fourth metatarsal bone, right foot, initial encounter for closed fracture
CPT/HCPCS: 27560; 36415; 70450; 71045; 71260; 72125; 72170; 74177; 76000; 80048; 80053; 81003; 83690; 83735; 84100; 84703; 85025; 85610; 85730; 96374; 96375; 96376; C1713; G0390; J0131; J0670; J1100; J1650; J1885; J2001; J2250; J2270; J2405; J2704; J2795; J3010; J7050; Q9966; S0028

== ENCOUNTER 2018-08-26 10:20 | Emergency (ER) | payer OTHER ==
[2018-08-26] MEDS ORDERED: Ketorolac Tromethamine 30 MG/ML VIAL ONE (11:10)
--- NOTE | 2018-08-26 11:31 | RAD ---
EXAM: XR Knee Rt 4 View STANDARD PROVIDED CLINICAL HISTORY: Pain status post fall COMPARISON: 06/27/2018 FINDINGS: Postoperative changes of ORIF proximal tibia redemonstrated, without evidence for hardware loosening or migration. Tibial and fibular fractures are redemonstrated. No evidence for an acute fracture. No significant change in position or alignment. No evidence for significant knee joint capsular diste ntion. IMPRESSION: Postoperative and posttraumatic changes involving the left proximal foreleg, appearing stable with re spect to the prior study.
[2018-08-26] MEDS ORDERED: Morphine 10 MG/ML VIAL ONE (12:26)
--- NOTE | 2018-08-26 13:03 | ULT ---
DOPPLER VENOUS ULTRASOUND OF THE RIGHT LOWER EXTREMITY: Date: 08/26/18 INDICATION: Right lower extremity pain. TECHNIQUE: Shrestha scale, color Doppler, and vascular duplex with spectral analysis was performed of the deep venou s structures of the right lower extremity. The common femoral vein, superficial femoral vein, proxima l greater saphenous vein, proximal greater profunda vein, popliteal, and posterior tibial veins were assessed. FINDINGS: Normal compression, flow, and augmentation was seen within the deep venous structures of the right lo wer extremity. IMPRESSION: No evidence of deep venous thrombosis within the right lower extremity. POS: BH
== END 2018-08-26 12:50 | disposition home or self-care (01) ==
LOC: SCSER 10:20
DX: S80.01XA Contusion of right knee, initial encounter (principal); I10 Essential (primary) hypertension; G43.909 Migraine, unspecified, not intractable, without status migrainosus; F32.9 Major depressive disorder, single episode, unspecified; Z79.899 Other long term (current) drug therapy; W18.09XA Striking against other object with subsequent fall, initial encounter
CPT/HCPCS: 96372; J1885; J2270

== ENCOUNTER 2019-03-08 02:08 | Emergency (ER) | payer OTHER, SELFPAY ==
[2019-03-08 02:42] LABS: #Eosinphils 0.1 thou/uL (0.0-0.7); #Lymphocytes 2.2 thou/uL (1.20-3.40); #Monocytes 0.4 thou/uL (0.11-0.59); #Neutrophils 2.2 thou/uL (1.40-6.50); %Basophils 0.8 % (0.0-1.0); %Lymphocytes 44.8 % (21.0-51.0); %Monocytes 7.6 % (0.0-10.0); %Neutrophils 44.9 % (42.0-75.0); Hemoglobin 7.7 g/dL (12.0-16.0); Mean Corpuscular HGB CONC 31.1 g/dL (32.0-36.0); Mean Corpuscular Hemoglobin 24.3 pg (27.0-31.0); Mean Corpuscular Volume 78.2 fL (78.0-98.0); Mean Platelet Volume 6.6 fL (7.4-10.4); Platelet Count 266 thou/uL (130-400); RBC Distribution Width 15.3 % (11.5-14.5); Red Blood Cell (RBC) Count 3.17 mill/uL (4.20-5.40); White Blood Cell (WBC) Count 4.9 thou/uL (4.8-10.8)
[2019-03-08 03:02] LABS: ALT (SGPT) 13 U/L (8-55); AST (SGOT) 12 U/L (5-34); Acetaminophen Less than 6.0 mcg/mL (10.0-30.0); Albumin 3.8 g/dL (3.5-5.0); Alcohol 27 mg/dL (Less than 10); Alkaline Phosphatase 53 U/L (40-110); Anion Gap 11 mmol/L (10-20); BUN (Urea Nitrogen) 7 mg/dL (7.0-18.7); Bilirubin, Total Less than 0.2 mg/dL (0.2-1.2); CK (CPK) 78 U/L (29-168); Calc. Creatinine Clearance 0 mL/min (70-130); Calcium 8.2 mg/dL (7.8-10.44); Carbon Dioxide 25 mmol/L (22-29); Chloride 108 mmol/L (98-107); Estimated GFR-MDRD Greater than 90; Globulin 2.2 g/dL (2.4-3.5); Glucose 95 mg/dL (70-105); Salicylate Less than 8.0 mg/dL (15.0-30.0); Sodium 141 mmol/L (136-145)
[2019-03-08 03:08] LABS: Potassium 2.9 mmol/L (3.5-5.1)
[2019-03-08] MEDS ORDERED: Potassium Chloride 40 MEQ in Sodium Chloride 0.9% 500 ML IVPB SCH (03:30)
[2019-03-08] MEDS ORDERED: Magnesium 2 GM/50 ML BAG (IN WATER) ONE (03:55)
[2019-03-08 03:59] LABS: Bacteria/HPF None Seen HPF (None Seen); Bilirubin Negative (Negative); Blood, Urine Negative (Negative); Clarity Clear (Clear); Glucose, Urine (Dipstick) Normal (Negative); Leukocyte 25 Leu/uL (Negative); Medtox Reader # READER 1; Nitrite Negative (Negative); Pregnancy Test - Urine (BHCG) Negative (Negative); Pregu Control Background? CLEAR/WHITE (CLR/WHITE); Pregu Control Bar Appear? YES (CONTROL BAR); Protein, Urine (Dipstick) 20 mg/dL (Neg-Trace); RBC/HPF 0-3 HPF (0-3); Specific Gravity 1.024 (1.002-1.036); Urobilinogen Normal mg/dL (Less than 2)
[2019-03-08 04:01] LABS: Amphetamine Detected (NotDetected); Barbiturates Screen Not Detected (NotDetected); Benzodiazepine Screen Not Detected (NotDetected); Cocaine Metabolite Screen Not Detected (NotDetected); Medtox Control Line Valid? VALID (VALID); Methadone Not Detected (NotDetected); Methamphetamine Detected (NotDetected); Opiate Screen Not Detected (NotDetected); Oxycodone Screen Not Detected (NotDetected); Phencyclidine (PCP) Not Detected (NotDetected); THC/Cannabinoid Screen Not Detected (NotDetected); Tricyclic Screen Detected (NotDetected)
[2019-03-08 06:28] LABS: Anion Gap 7 mmol/L (10-20); BUN (Urea Nitrogen) 7 mg/dL (7.0-18.7); Calc. Creatinine Clearance 0 mL/min (70-130); Calcium 7.6 mg/dL (7.8-10.44); Carbon Dioxide 27 mmol/L (22-29); Chloride 112 mmol/L (98-107); Estimated GFR-MDRD Greater than 90; Glucose 85 mg/dL (70-105); Potassium 3.4 mmol/L (3.5-5.1); Sodium 143 mmol/L (136-145)
== END 2019-03-08 16:58 ==
LOC: ERS 02:08
DX: T43.592A Poisoning by other antipsychotics and neuroleptics, intentional self-harm, initial encounter (principal); I10 Essential (primary) hypertension; G43.909 Migraine, unspecified, not intractable, without status migrainosus; Z79.899 Other long term (current) drug therapy
CPT/HCPCS: 36415; 80053; 80306; 80307; 81003; 81015; 81025; 82550; 84443; 85025; 93005; 96361; 96365; 96366; 96368; J3475; J3480; J7050

== ENCOUNTER 2019-12-10 16:59 | Emergency (ER) | payer SELFPAY ==
[~2019-12-10 16:59] MED LIST changes: -ISOVUE-370 76%-LOCM 1 ML ONE; +Iopamidol-370 76% 500 ML 1 ML ONE
--- NOTE | 2019-12-10 18:55 | RAD ---
PORTABLE CHEST: History: HIV, shortness of breath Comparison: 06-26-18 FINDINGS: Heart size and mediastinum within normal limits. Lungs are clear of infiltrates. No bony findings. IMPRESSION: No active intrathoracic disease. POS: SANAZ
[2019-12-10 19:09] LABS: #Eosinphils 0.2 thou/uL (0.0-0.7); #Lymphocytes 2.5 thou/uL (1.20-3.40); #Monocytes 0.6 thou/uL (0.11-0.59); #Neutrophils 3.7 thou/uL (1.40-6.50); %Basophils 0.4 % (0.0-1.0); %Eosinophils 2.3 % (0.0-10.0); %Lymphocytes 36.3 % (21.0-51.0); %Monocytes 8.3 % (0.0-10.0); %Neutrophils 52.9 % (42.0-75.0); Hemoglobin 10.3 g/dL (12.0-16.0); Mean Corpuscular HGB CONC 31.2 g/dL (32.0-36.0); Mean Corpuscular Hemoglobin 24.7 pg (27.0-31.0); Mean Corpuscular Volume 79.2 fL (78.0-98.0); Mean Platelet Volume 8.7 fL (7.4-10.4); Platelet Count 324 thou/uL (130-400); RBC Distribution Width 20.9 % (11.5-14.5); Red Blood Cell (RBC) Count 4.16 mill/uL (4.20-5.40); White Blood Cell (WBC) Count 6.9 thou/uL (4.8-10.8)
[2019-12-10 19:19] LABS: ALT (SGPT) 15 U/L (8-55); AST (SGOT) 16 U/L (5-34); Albumin 4.5 g/dL (3.5-5.0); Alkaline Phosphatase 50 U/L (40-110); Anion Gap 10 mmol/L (10-20); BUN (Urea Nitrogen) 12 mg/dL (7.0-18.7); Bilirubin, Total 0.2 mg/dL (0.2-1.2); Calc. Creatinine Clearance 0 mL/min (70-130); Carbon Dioxide 22 mmol/L (22-29); Chloride 110 mmol/L (98-107); Estimated GFR-MDRD 84; Globulin 2.8 g/dL (2.4-3.5); Glucose 80 mg/dL (70-105); Potassium 3.7 mmol/L (3.5-5.1); Protein, Total 7.3 g/dL (6.0-8.3); Sodium 138 mmol/L (136-145)
[2019-12-10 19:25] LABS: BHCG - Serum Negative (NEGATIVE); Pregs Control Background? CLEAR/WHITE (CLR/WHITE); Pregs Control Bar Appear? YES (CONTROL BAR)
[2019-12-10 19:32] LABS: Anisocytosis SLIGHT = 6-15 cells (100X) (0-5/hpf); Hypochromia SLIGHT = 6-15 cells (100X) (0-5/hpf); MDiff Complete? YES; Ovalocytes SLIGHT = 2-5 cells (100X) (0-1/hpf); Platelet Morphology Comment Appears Adequate; Polychromasia SLIGHT = 2-3 cells (100X) (0-2/hpf)
--- NOTE | 2019-12-10 20:05 | CT ---
Exam: CT angiogram of the chest HISTORY: Chest tightness, dizziness and dyspnea. Past medical history of DVT. COMPARISON: 07/05/2015 TECHNIQUE: CT angiogram of the chest is performed in the axial plane. Three-dimensional reformatted i mages are submitted for interpretation FINDINGS: Mediastinum: No mass, lymphadenopathy or hematoma. HEART: Normal size. No significant pericardial fluid. Aorta: No aneurysm or dissection Upper solid abdominal viscera: No abnormality enhancement. Surgically absent gallbladder. Evidence of previous bariatric surgery. Trachea and central bronchi: Patent Pleural spaces: No effusion Lung parenchyma: No masses or consolidation. Pneumothorax: None Osseous structures: No lytic or blastic lesions Pulmonary arteries: Adequate contrast opacification pulmonary arterial system to the level of segment al arteries. No filling defect to suggest pulmonary embolism IMPRESSION:No evidence of pulmonary artery embolism to the level of the segmental arteries.
[2019-12-10] MEDS ORDERED: diphenhydrAMINE 50 MG/ML VIAL ONE (20:10)
[2019-12-10] MEDS ORDERED: methylPREDNISolone Sod Succ/PF 125 MG/2 ML VIAL ONE (20:14)
[2019-12-10] MEDS ORDERED: Famotidine/PF 20 mg/2ml Vial ONE (20:14)
[2019-12-10 21:07] LABS: Bilirubin Negative (Negative); Blood, Urine Negative (Negative); Clarity Clear (Clear); Glucose, Urine (Dipstick) Negative (Negative); Ketone, Urine Negative (Negative); Leukocyte Negative (Negative); Nitrite Negative (Negative); Protein, Urine (Dipstick) Negative (Neg-Trace); Urobilinogen 0.2 mg/dL (Less than 2); pH, Urine 5.5 (5.0-9.0)
== END 2019-12-10 20:45 | disposition home or self-care (01) ==
LOC: ERS 16:59 → EEVIPCON 16:59 → ERS 20:45
DX: R55 Syncope and collapse (principal); R06.02 Shortness of breath; I10 Essential (primary) hypertension; G43.909 Migraine, unspecified, not intractable, without status migrainosus; B20 Human immunodeficiency virus [HIV] disease; Z79.899 Other long term (current) drug therapy
CPT/HCPCS: 36415; 71045; 71275; 80053; 81003; 84484; 84703; 85025; 86850; 86900; 86901; 93005; 96374; 96375; J1200; J2930; Q9967; S0028

== ENCOUNTER 2020-02-27 07:46 | Outpatient (CLI) | payer MEDICAID, OTHER ==
--- NOTE | 2020-02-27 17:32 | EKG ---
Test Reason : PREOP Blood Pressure : / mmHG Vent. Rate : 086 BPM Atrial Rate : 086 BPM P-R Int : 132 ms QRS Dur : 084 ms QT Int : 384 ms P-R-T Axes : 053 043 050 degrees QTc Int : 459 ms Normal sinus rhythm Normal ECG Confirmed by DR. Heike TORRES ([id number]) on 02/27/2020 5:32:03 PM Referred By: KIRT Confirmed By:DR. Heike TORRES
[2020-02-27 19:00] LABS: SARS-CoV-2 MS2 Positive; SARS-CoV-2 N Gene Negative; SARS-CoV-2 S Gene Negative; SARS-CoV-2 by NAA Not Detected (NotDetected); SARS-CoV-2 orf1ab Negative
== END 2020-02-27 07:47 | disposition home or self-care (01) ==
LOC: LABBT 07:46
PROVIDERS: ATTEND Orthopaedic Surgery
DX: Z01.818 Encounter for other preprocedural examination (principal); S82.141D Displaced bicondylar fracture of right tibia, subsequent encounter for closed fracture with routine healing; Z20.828 Contact with and (suspected) exposure to other viral communicable diseases
CPT/HCPCS: 87635; 93005; 93010; U0003

== ENCOUNTER 2020-02-27 08:00 | Inpatient (IN) | payer MEDICAID ==
[2020-02-27 10:28] LABS: Hemoglobin 11.7 g/dL (12.0-16.0); Mean Corpuscular HGB CONC 32.6 g/dL (32.0-36.0); Mean Corpuscular Hemoglobin 28.5 pg (27.0-31.0); Mean Corpuscular Volume 87.5 fL (78.0-98.0); Mean Platelet Volume 8.1 fL (7.4-10.4); Platelet Count 268 thou/uL (130-400); Red Blood Cell (RBC) Count 4.09 mill/uL (4.20-5.40); White Blood Cell (WBC) Count 5.6 thou/uL (4.8-10.8)
[2020-02-27 10:56] LABS: Anion Gap 11 mmol/L (10-20); BUN (Urea Nitrogen) 8 mg/dL (7.0-18.7); Calc. Creatinine Clearance 0 mL/min (70-130); Carbon Dioxide 28 mmol/L (22-29); Chloride 105 mmol/L (98-107); Estimated GFR-MDRD 85; Glucose 102 mg/dL (70-105); Potassium 3.4 mmol/L (3.5-5.1); Sodium 141 mmol/L (136-145)
[2020-02-27 10:58] LABS: Bacteria/HPF 4+ HPF (None Seen); Bilirubin Negative (Negative); Blood, Urine Trace (Negative); Clarity Turbid (Clear); Glucose, Urine (Dipstick) Normal (Negative); Ketone, Urine Negative (Negative); Leukocyte 75 Leu/uL (Negative); Nitrite Negative (Negative); Protein, Urine (Dipstick) 20 mg/dL (Neg-Trace); Specific Gravity, Urine 1.021 (1.002-1.036); Squamous Epithelial 21-50 HPF (0-3); Urobilinogen Normal mg/dL (Less than 2)
[2020-03-03] MEDS ORDERED: Midazolam HCl 2 mg/2 ml Vial ONE ×2 (11:25→12:34)
[2020-03-03] MEDS ORDERED: Lidocaine 1% (PF) 30 ML VIAL ONE (11:26)
[2020-03-03] MEDS ORDERED: Fentanyl 100 MCG/2 ML VIAL ONE ×4 (11:26→17:07)
[2020-03-03] MEDS ORDERED: Vancomycin 1.5 GRAM/300 ML BAG ONE (11:37)
[2020-03-03] MEDS ORDERED: Tranexamic Acid 1,000 MG/10 ML VIAL ONE (11:37)
[2020-03-03] MEDS ORDERED: Sodium Chloride 0.9% 100 ML ONE (11:37)
[2020-03-03] MEDS ORDERED: Fentanyl 100 MCG/2 ML VIAL IV PRN (11:58)
[2020-03-03] MEDS ORDERED: Zolpidem Tartrate 5 MG TAB PO PRN (12:00)
[2020-03-03] MEDS ORDERED: Promethazine HCl 25 MG/ML VIAL IM PRN ×2 (12:00→15:24)
[2020-03-03] MEDS ORDERED: Ropivacaine HCl/PF 250 ML in Premix Bag 1 BAG NERVE BLCK SCH (12:00)
[2020-03-03] MEDS ORDERED: Ondansetron PF 4 MG/2 ML Vial IVP PRN (12:00)
[2020-03-03] MEDS ORDERED: traMADol HCl 50 MG TAB PO PRN ×2 (12:00)
[2020-03-03] MEDS ORDERED: Ondansetron PF 4 MG/2 ML Vial ONE (13:44)
[2020-03-03] MEDS ORDERED: PROPOFOL 200 MG/20 ML VIAL ONE (13:44)
[2020-03-03] MEDS ORDERED: Bupivacaine HCl 0.5%/Epinephrine 1:200,000/PF 30 ml Vial ONE (13:44)
[2020-03-03] MEDS ORDERED: Dexamethasone 20 MG/5 ML VIAL ONE (13:44)
[2020-03-03] MEDS ORDERED: PHENYLEPHRINE-NS 100 MCG/ML 10 ML SYRINGE ONE (13:44)
[2020-03-03] MEDS ORDERED: Ropivacaine 0.2% HCl/PF (40 MG/20 ML VIAL) ONE (13:44)
[2020-03-03] MEDS ORDERED: Ondansetron HCl/PF 4 MG/2 ML Vial IVP PRN (15:24)
[2020-03-03] MEDS ORDERED: Promethazine HCl 25 MG/ML VIAL SLOW IVP PRN (15:24)
[2020-03-03] MEDS ORDERED: Promethazine HCl 25 MG/ML VIAL ONE (16:16)
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
--- NOTE | 2020-03-03 17:40 | OP ---
DATE OF PROCEDURE: 03/03/2020 PREOPERATIVE DIAGNOSES: 1. Posttraumatic arthritis, right knee. 2. Status post right tibial plateau fracture. POSTOPERATIVE DIAGNOSES: 1. Posttraumatic arthritis, right knee. 2. Status post right tibial plateau fracture. PROCEDURES PERFORMED: 1. Right total knee arthroplasty. 2. Removal of hardware in the right tibial plateau. ANESTHESIA: General. BLANKBOOK FORWARDER: Andrei Rutherford PA-C IMPLANTS: DePuy system was used with a Sigma 2.5 mm femur, a Sigma 2.5 mm tibial tray, a 10 mm poly insert, a 35 mm all-poly patellar button, and the [place] Simplex polymethylmethacrylate cement with tobramycin added. TOURNIQUET TIME: 119 minutes at 300 mmHg. COMPLICATIONS: None. DRAINS: None. SPECIMENS: None. OUTCOME: Satisfactory. INDICATIONS FOR PROCEDURE: Ms. Archer is a 39-year-old lady status post severely comminuted right tibial plateau fracture. She has gone on to successful union of the fracture, but does have severe posttraumatic arthritis with a very irregularly surfaced lateral tibial plateau. After discussion with the patient including risks and benefits, we decided to proceed with removal of hardware and total knee arthroplasty. Informed consent has been obtained. I believe, all questions answered. DESCRIPTION OF PROCEDURE: The patient was brought to the operating room and a time-out performed followed by induction of general anesthesia. Next, she was positioned supine on the OR table and a sterile prep and drape performed of this right lower extremity. Using the lower half of the prior skin incision, an incision was started at the proximal tibia and then carried up over the patella to the level just 3 fingerbreadths above the superior pole of the patella. After skin was sharply incised, dissection was carried down with electrocautery to the underlying quadriceps mechanism. The dissection distally was then carried laterally, exposing the proximal portion of the anterior compartment. The fascia of the anterior compartment was incised with a scalpel and the muscle belly reflected posteriorly, gaining access to the lateral plateau plate. The screws were removed from the plateau plate and the plateau plate removed without difficulty. Next, a medial parapatellar arthrotomy was performed with the incision carried down along the medial aspect of the patellar tendon. With this incision, 2 interfragmentary screws that were placed percutaneously were identified and these were also removed. At this point, all hardware had been successfully removed from the proximal tibia. The patella was then inverted and reflected laterally, gaining access to the distal femur and the joint surface. The remnants of menisci were excised using electrocautery as was the ACL. A portion of the synovium at the anterior distal end of the femur was also excised. Next, the step drill was used to gain access to the intramedullary canal of the femur. This was followed by intramedullary guided placement of a distal cutting block. The distal femur was then cut and then this was followed by placement of the sizing jig. She sized to a size 2.5. The pins were placed through this sizing jig and then the 4-in-1 cutting block passed over these pins and further pin to the end of the femur. The final cuts of the femur were then performed without difficulty. Next, attention was placed at the proximal tibia. A step drill was also used to obtain intramedullary access at the tibial spine. This was followed by intramedullary alignment and pinning of the tibial cutting block to the anterior proximal tibia. A cut was then performed. This cut was found to be not quite deep enough and did not incorporate all of the previously damaged articular surface laterally, and as such, it was dropped 2 mm and then a 2nd cut performed. This resulted in a good cut with healthy-appearing bone throughout both medial and lateral plateau surfaces. This was sized to a size 2.5, and then the trial was pinned in place. The proximal femur further prepared with the reamer and cruciate stem. The trial component was left in place and then the femoral trial component was inserted followed by insertion of a 10 mm trial poly spacer. This resulted in good flexion and extension gaps in the knee, that did come into full extension. Next, the patella was resurfaced freehand with peg holes drilled through the jig to accept the final patellar component. At this point, all trial components were removed from the femur, tibia, and patella. The knee was then irrigated with 3 L of normal saline using Pulsavac. Cement was mixed at this time and then the cement tray was seated 1st with a small tibial stem. This was followed by cementing of the femoral component. Excess cement was removed and then the final 10-mm poly insert was applied to the tibial tray and then the knee was brought into full extension with axial loading of the knee while the cement cured. At this point, the patellar button was cemented in place as well. Excess cement was removed. While we waited for the cement fully cured, the knee was again irrigated with Pulsavac and then the anterior fascia of the anterior compartment was reapproximated using #2 Vicryl. This was followed by closure of the quadriceps tendon and medial arthrotomy closure with #2 Vicryl followed by 2-0 Vicryl subcutaneously and marely for the skin. Xeroform gauze, Webril, and Hector wrap dressing was applied to the knee and then the tourniquet was let down with total time of 119 minutes. The patient was then transferred to Recovery in stable condition. There were no complications. She tolerated the procedure well. Job ID: [id number]
[2020-03-03] MEDS: Ketorolac Tromethamine 30 MG/ML VIAL IVP SCH ×3 (18:30→23:58)
[2020-03-03] MEDS: HYDROcodone/Acetaminophen 10/325 mg Tablet PO PRN (18:34)
[2020-03-03] MEDS: CEFAZOLIN 2 GM in Premix Bag 1 BAG IVPB SCH (20:04)
[2020-03-03] MEDS: Labetalol 100 MG TAB PO SCH (20:07)
[2020-03-03] MEDS: traZODone HCl 50 MG TAB PO SCH (20:08)
[2020-03-03] MEDS: Aspirin 81 mg Enteric Coated Tablet PO SCH (20:08)
[2020-03-03] MEDS: Topiramate 100 MG TAB PO SCH (20:08)
[2020-03-03 21:43] VITALS: BMI 43.7
[2020-03-03] MEDS ORDERED: Vancomycin 1 GM in Premix Bag 1 BAG IVPB SCH (23:59)
[2020-03-04] MEDS: CEFAZOLIN 2 GM in Premix Bag 1 BAG IVPB SCH (03:44)
[2020-03-04 05:32] LABS: #Lymphocytes 1.4 thou/uL (1.20-3.40); #Monocytes 0.6 thou/uL (0.11-0.59); #Neutrophils 5.5 thou/uL (1.40-6.50); %Basophils 0.1 % (0.0-1.0); %Eosinophils 0.1 % (0.0-10.0); %Lymphocytes 18.9 % (21.0-51.0); %Monocytes 8.4 % (0.0-10.0); %Neutrophils 72.5 % (42.0-75.0); Hemoglobin 8.9 g/dL (12.0-16.0); Mean Corpuscular HGB CONC 33.2 g/dL (32.0-36.0); Mean Corpuscular Hemoglobin 28.9 pg (27.0-31.0); Mean Corpuscular Volume 87.1 fL (78.0-98.0); Mean Platelet Volume 7.8 fL (7.4-10.4); Platelet Count 193 thou/uL (130-400); RBC Distribution Width 14.4 % (11.5-14.5); Red Blood Cell (RBC) Count 3.07 mill/uL (4.20-5.40); White Blood Cell (WBC) Count 7.6 thou/uL (4.8-10.8)
[2020-03-04] MEDS: Ketorolac Tromethamine 30 MG/ML VIAL IVP SCH ×4 (05:49→22:45)
[2020-03-04] MEDS: Topiramate 100 MG TAB PO SCH ×2 (08:28→19:28)
[2020-03-04] MEDS: Aspirin 81 mg Enteric Coated Tablet PO SCH ×2 (08:29→19:28)
[2020-03-04] MEDS ORDERED: NALTREXONE HCL 50 MG PO SCH (09:00)
[2020-03-04] MEDS ORDERED: buPROPion HCl 100 MG TAB PO SCH (09:00)
[2020-03-04] MEDS: Labetalol 100 MG TAB PO SCH ×2 (09:15→19:31)
[2020-03-04] MEDS: HYDROcodone/Acetaminophen 10/325 mg Tablet PO PRN ×3 (09:24→23:43)
[2020-03-04] MEDS ORDERED: Sodium Chloride 0.9% 1,000 ML IV SCH (13:00)
[2020-03-04] MEDS: traZODone HCl 50 MG TAB PO SCH (19:27)
[2020-03-04] MEDS ORDERED: FLU VACC QS2020-21(6MOS UP)/PF 60 MCG/0.5 ML SYRINGE IM ONE (21:00)
[2020-03-05] MEDS: HYDROcodone/Acetaminophen 10/325 mg Tablet PO PRN ×2 (03:33→09:49)
[2020-03-05] MEDS: Ketorolac Tromethamine 30 MG/ML VIAL IVP SCH (05:06)
[2020-03-05 05:26] LABS: #Eosinphils 0.1 thou/uL (0.0-0.7); #Lymphocytes 1.9 thou/uL (1.20-3.40); #Monocytes 0.4 thou/uL (0.11-0.59); #Neutrophils 2.8 thou/uL (1.40-6.50); %Basophils 0.2 % (0.0-1.0); %Eosinophils 2.4 % (0.0-10.0); %Lymphocytes 36.1 % (21.0-51.0); %Monocytes 7.8 % (0.0-10.0); %Neutrophils 53.5 % (42.0-75.0); Hemoglobin 7.8 g/dL (12.0-16.0); Mean Corpuscular HGB CONC 32.2 g/dL (32.0-36.0); Mean Corpuscular Hemoglobin 28.6 pg (27.0-31.0); Mean Corpuscular Volume 88.9 fL (78.0-98.0); Mean Platelet Volume 7.8 fL (7.4-10.4); Platelet Count 171 thou/uL (130-400); RBC Distribution Width 14.8 % (11.5-14.5); Red Blood Cell (RBC) Count 2.74 mill/uL (4.20-5.40); White Blood Cell (WBC) Count 5.2 thou/uL (4.8-10.8)
[2020-03-05] MEDS: Aspirin 81 mg Enteric Coated Tablet PO SCH (08:42)
[2020-03-05] MEDS: Topiramate 100 MG TAB PO SCH (08:42)
[2020-03-05] MEDS: Labetalol 100 MG TAB PO SCH (08:43)
[2020-03-05] MEDS ORDERED: Ropivacaine 0.2% 550 ML 550 ML NERVE BLCK SCH (10:30)
[2020-03-05 13:07] VITALS: TEMP 98.1
[2020-03-05 13:08] VITALS: BP 94/56
== END 2020-03-05 13:45 | disposition home or self-care (01) | DRG 470 ==
LOC: SURG A 03-03 10:37 → SJJU 03-03 17:48
PROVIDERS: ADMIT Orthopaedic Surgery; ATTEND Orthopaedic Surgery
PROC: 0SRC0J9 Replacement of Right Knee Joint with Synthetic Substitute, Cemented, Open Approach (ICD-10-PCS; principal; 2020-03-03)
PROC: 0QPG04Z Removal of Internal Fixation Device from Right Tibia, Open Approach (ICD-10-PCS; 2020-03-03)
DX: M17.31 Unilateral post-traumatic osteoarthritis, right knee (principal); S82.141S Displaced bicondylar fracture of right tibia, sequela; V89.2XXS Person injured in unspecified motor-vehicle accident, traffic, sequela; I10 Essential (primary) hypertension; F32.9 Major depressive disorder, single episode, unspecified; F41.9 Anxiety disorder, unspecified; Z90.49 Acquired absence of other specified parts of digestive tract; Z79.899 Other long term (current) drug therapy
CPT/HCPCS: 36415; 80048; 81001; 85025; 85027; 86850; 86900; 86901; 90471; 90662; A4306; C1713; C1776; G0008; J0690; J1100; J1885; J2001; J2250; J2405; J2550; J2704; J2795; J3010; J3370; J3490

== ENCOUNTER 2020-09-02 09:08 | Outpatient (CLI) | payer MEDICAID, OTHER | END 2020-09-02 09:09 | disposition home or self-care (01) | LOC: BICRAD 09:08 | PROVIDERS: ATTEND Nurse Practitioner Family | DX: M51.16 Intervertebral disc disorders with radiculopathy, lumbar region (principal); M41.9 Scoliosis, unspecified | CPT/HCPCS: 72100 ==

== ENCOUNTER 2021-05-01 10:08 | Outpatient (CLI) | payer OTHER | END 2021-05-01 10:09 | disposition home or self-care (01) | LOC: SCSMRI 10:08 | PROVIDERS: ATTEND Nurse Practitioner Family | DX: M47.26 Other spondylosis with radiculopathy, lumbar region (principal); M47.817 Spondylosis without myelopathy or radiculopathy, lumbosacral region | CPT/HCPCS: 72148 ==

== ENCOUNTER 2022-07-21 19:00 | Outpatient (CLI) | payer OTHER | END 2022-07-21 19:01 | disposition home or self-care (01) | LOC: SLEEPLAB 19:00 | PROVIDERS: ATTEND Family Medicine | DX: G47.33 Obstructive sleep apnea (adult) (pediatric) (principal) | CPT/HCPCS: 95810 ==

== ENCOUNTER 2022-08-17 09:15 | Outpatient (CLI) | payer OTHER | END 2022-08-17 09:16 | disposition home or self-care (01) | LOC: ULT 09:15 | PROVIDERS: ATTEND Family Medicine | DX: R74.01 Elevation of levels of liver transaminase levels (principal); K76.0 Fatty (change of) liver, not elsewhere classified | CPT/HCPCS: 76705 ==

== ENCOUNTER → 2022-08-22 | Outpatient (CLI) | payer OTHER | LOC: SLEEPLAB 19:00 | PROVIDERS: ATTEND Family Medicine | DX: G47.33 Obstructive sleep apnea (adult) (pediatric) (principal); R53.83 Other fatigue; E66.9 Obesity, unspecified; R06.83 Snoring; Z68.41 Body mass index [BMI] 40.0-44.9, adult | CPT/HCPCS: 95811 ==

== ENCOUNTER 2023-08-11 10:01 | Outpatient (CLI) | payer OTHER ==
[2023-08-11 11:41] LABS: #Basophils 0.03 10x3/uL (0.0-0.2); #Eosinphils 0.15 10x3/uL (0.0-0.5); #Monocytes 0.47 10x3/uL (0.0-1.1); %Basophils 0.3 % (0.0-2.0); %Eosinophils 1.7 % (0.0-6.0); %Lymphocytes 30.6 % (18.0-47.0); %Monocytes 5.4 % (0.0-10.0); %Neutrophils 61.5 % (40.0-75.0); Hematocrit 37.8 % (34.9-44.5); Hemoglobin 12.7 g/dL (12.0-15.5); Mean Corpuscular HGB CONC 33.6 g/dL (32.0-36.0); Mean Corpuscular Hemoglobin 31.1 pg (27.0-33.0); Mean Corpuscular Volume 92.6 fl (81.6-98.3); Mean Platelet Volume 9.1 fl (7.4-10.4); Platelet Count 298 10x3/uL (150-450); RBC Distribution Width 11.7 % (11.5-14.5); Red Blood Cell (RBC) Count 4.08 10x6/uL (3.90-5.03); White Blood Cell (WBC) Count 8.6 10x3/uL (3.5-10.5)
[2023-08-11 11:58] LABS: Prothrombin Time 10.4 sec (9.5-12.1)
[2023-08-11 12:08] LABS: Anion Gap 9 mmol/L (10-20); BUN (Urea Nitrogen) 21 mg/dL (7.0-18.7); Calc. Creatinine Clearance 0 mL/min (70-130); Calcium 10.2 mg/dL (7.8-10.44); Carbon Dioxide 29 mmol/L (22-29); Chloride 106 mmol/L (98-107); Estimated GFR 94; Glucose 89 mg/dL (70-105); Potassium 4.2 mmol/L (3.5-5.1); Sodium 140 mmol/L (136-145)
== END 2023-08-11 10:02 | disposition home or self-care (01) ==
LOC: LABBT 10:01
PROVIDERS: ATTEND Orthopaedic Surgery
DX: Z01.818 Encounter for other preprocedural examination (principal); M17.31 Unilateral post-traumatic osteoarthritis, right knee; M24.60 Ankylosis, unspecified joint
CPT/HCPCS: 80048; 85025; 85610; 87081; 93005; 93010

== ENCOUNTER 2023-09-21 12:41 | Outpatient (CLI) | payer OTHER | END 2023-09-21 12:42 | disposition home or self-care (01) | LOC: SCSRAD 12:41 | PROVIDERS: ATTEND Family Medicine | DX: M25.512 Pain in left shoulder (principal); M54.6 Pain in thoracic spine | CPT/HCPCS: 72072 ==

== ENCOUNTER 2023-10-06 10:54 | Outpatient (CLI) | payer OTHER | END 2023-10-06 10:55 | disposition home or self-care (01) | LOC: SCSMRI 10:54 | PROVIDERS: ATTEND Family Medicine | DX: M54.6 Pain in thoracic spine (principal); M51.24 Other intervertebral disc displacement, thoracic region | CPT/HCPCS: 72146 ==

== ENCOUNTER 2023-10-20 09:42 | Outpatient (CLI) | payer OTHER | END 2023-10-20 09:43 | disposition home or self-care (01) | LOC: SCSMRI 09:42 | PROVIDERS: ATTEND Nurse Practitioner Family | DX: M47.22 Other spondylosis with radiculopathy, cervical region (principal); M50.123 Cervical disc disorder at C6-C7 level with radiculopathy | CPT/HCPCS: 72141 ==

== ENCOUNTER 2024-12-28 07:40 | Outpatient (CLI) | payer BC | END 2024-12-28 07:41 | disposition home or self-care (01) | LOC: SCSMRI 07:40 | PROVIDERS: ATTEND Anesthesiology | DX: M51.16 Intervertebral disc disorders with radiculopathy, lumbar region (principal); M51.17 Intervertebral disc disorders with radiculopathy, lumbosacral region; M47.26 Other spondylosis with radiculopathy, lumbar region; M48.061 Spinal stenosis, lumbar region without neurogenic claudication; M48.07 Spinal stenosis, lumbosacral region | CPT/HCPCS: 72148 ==